=== PATIENT | female | born 1980 | race American Indian/Alaskan Native ===

== ENCOUNTER 2017-10-05 00:28 | Emergency (ER) | payer SELFPAY ==
--- NOTE | 2017-10-05 00:43 | ED PDOC ---
Arrival/HPI <Andrews Taylor - Last Filed: 10/05/17 02:45> - General Historian: Patient <Ryan Whittaker - Last Filed: 10/06/17 01:32> - General Time Seen by Provider: 10/05/17 00:40 - History of Present Illness Narrative History of Present Illness (Text): 10/05/17 00:42 37 y/o female, no significant pmh, nkda, c/o throat pain and voice hoarsenss x 3 days. Aching pain, painful to swallow, no neck pain, no coughing, no drooling , no fever or chills, no rash, no palpitation, no night sweat, no other medical or psychological complaints. (Ryan Whittaker) Past Medical History - Provider Review Nursing Documentation Reviewed: Yes <Ryan Whittaker - Last Filed: 10/06/17 01:32> Family/Social History - Physician Review Nursing Documentation Reviewed: Yes Family/Social History: Unknown Family HX <Ryan Whittaker - Last Filed: 10/06/17 01:32> Allergies/Home Meds <Andrews Taylor - Last Filed: 10/05/17 02:45> <Ryan Whittaker - Last Filed: 10/06/17 01:32> Allergies/Adverse Reactions: Allergies No Known Allergies Allergy (Verified 10/05/17 00:45) Review of Systems - Review of Systems Constitutional: absent: Fatigue, Fevers Eyes: absent: Vision Changes ENT: Voice Changes, Sore Throat. absent: Hearing Changes Respiratory: absent: SOB Cardiovascular: absent: Chest Pain Gastrointestinal: absent: Abdominal Pain, Diarrhea, Nausea, Vomiting Skin: absent: Rash, Pruritis Neurological: absent: Headache, Dizziness Psychiatric: absent: Anxiety, Depression <Ryan Whittaker - Last Filed: 10/06/17 01:32> Physical Exam Pain Distress: Moderate Mental Status: Positive for: Alert and Oriented X 3 - Systems Exam Head: Present: Atraumatic, Normocephalic Pupils: Present: PERRL Extroacular Muscles: Present: EOMI Conjunctiva: Present: Normal Mouth: Present: Moist Mucous Membranes Pharnyx: Present: Other (+voice hoarseness). No: ERYTHEMA, EXUDATE, TONSILS ENLARGED, Peritonsilar Swelling, Uvular Deviation, Strider, Soft Palate/Uvular Edema Nose (Internal): Present: Normal Inspection, No Active Bleeding. No: Rhinorrhea Neck: Present: Normal Range of Motion, Lymphadenopathy (lt. anterior cervical) Respiratory/Chest: Present: Clear to Auscultation, Good Air Exchange. No: Respiratory Distress, Accessory Muscle Use Cardiovascular: Present: Regular Rate and Rhythm, Normal S1, S2. No: Murmurs Abdomen: No: Tenderness, Distention, Peritoneal Signs Back: Present: Normal Inspection Upper Extremity: Present: Normal Inspection. No: Cyanosis, Edema Lower Extremity: Present: Normal Inspection. No: Edema Neurological: Present: GCS=15, CN II-XII Intact, Speech Normal, Motor Func Grossly Intact, Gait Normal, Memory Normal Skin: Present: Warm, Dry, Normal Color. No: Rashes Lymphatic: No: Axillary Adenopathy Psychiatric: Present: Alert, Oriented x 3, Normal Insight, Normal Concentration <Ryan Whittaker - Last Filed: 10/06/17 01:32> Vital Signs Temp Pulse Resp BP Pulse Ox 10/05/17 03:30 98.2 F 68 18 111/79 100 10/05/17 00:45 98.3 F 73 17 122/69 100 Medical Decision Making <Andrews Taylor - Last Filed: 10/05/17 02:45> <Ryan Whittaker - Last Filed: 10/06/17 01:32> ED Course and Treatment: 10/05/17 00:44 -toradol/decadron/rocephine IV - (Ryan Whittaker) - Medication Orders Current Medication Orders: Discontinued Medications Dexamethasone (Decadron Inj) 8 mg IVP STAT STA Stop: 10/05/17 00:54 Last Admin: 10/05/17 02:17 Dose: 8 mg IVP Administration Document 10/05/17 02:17 NITA (Rec: 10/05/17 02:18 NITA [id number]) Charges for Administration # of IVP Administrations 1 Ceftriaxone Sodium (Rocephin 1 Gram Ivpb) 1 gm in 100 mls @ 200 mls/hr IVPB STAT STA PRN Reason: Protocol Stop: 10/05/17 01:22 Last Admin: 10/05/17 03:20 Dose: 200 mls/hr eMAR Start Stop Document 10/05/17 03:20 NITA (Rec: 10/05/17 03:21 [id number][facility] Intravenous Solution Start Date 10/05/17 Start Time 02:25 End Date 10/05/17 End time 03:21 Total Infusion Time 56 Sodium Chloride (Sodium Chloride 0.9%) 1,000 mls @ 999 mls/hr IV .Q1H1M STA Stop: 10/05/17 01:53 Last Admin: 10/05/17 03:20 Dose: 999 mls/hr eMAR Start Stop Document 10/05/17 03:20 NITA (Rec: 10/05/17 03:20 [id number]) Intravenous Solution Start Date 10/05/17 Start Time 01:15 End Date 10/05/17 End time 03:00 Total Infusion Time 105 Ketorolac Tromethamine (Toradol) 30 mg IVP STAT STA Stop: 10/05/17 00:54 Last Admin: 10/05/17 02:18 Dose: 30 mg MAR Pain Assessment Document 10/05/17 02:18 NITA (Rec: 10/05/17 02:18 [id number]) Pain Reassessment Is this a pain reassessment? Yes Sleep Is patient sleeping during reassessment? No Presence of Pain Presence of Pain Yes Location Pain Location Body Site Throat IVP Administration Document 10/05/17 02:18 NITA (Rec: 10/05/17 02:18 [id number]) Charges for Administration # of IVP Administrations 1 - PA / [employer] / Resident Statement NICOLETTE has reviewed & agrees with the documentation as recorded. NICOLETTE has examined the patient and agrees with the treatment plan. <Andrews Taylor - Last Filed: 10/05/17 02:45> - PA / [employer] / Resident Statement NICOLETTE has reviewed & agrees with the documentation as recorded. <Ryan Whittaker - Last Filed: 10/06/17 01:32> Disposition/Present on Arrival <Andrews Taylor - Last Filed: 10/05/17 02:45> - Present on Arrival Any Indicators Present on Arrival: No History of DVT/PE: No History of Uncontrolled Diabetes: No Urinary Catheter: No History of Decub. Ulcer: No - Disposition Have Diagnosis and Disposition been Completed?: Yes Disposition Time: 00:45 Patient Plan: Discharge <Ryan Whittaker - Last Filed: 10/06/17 01:32> - Disposition Diagnosis: Cervical lymphadenopathy, Throat pain, Laryngitis Disposition: HOME/ ROUTINE Condition: IMPROVED Additional Instructions: Discharge home with augmentin, motrin, salt water gargling, stop talking and no whispering either, stay hydrated, bed rest, follow up with your own pmd and ENT within 2 days, return to the ER for any new or worsening signs or symptoms. Prescriptions: Amoxicillin/Clavulanate [Augmentin 875 MG-125 MG] 1 tab PO BID #20 tab Ibuprofen [Motrin] 600 mg PO QID PRN #30 tab PRN Reason: Other Referrals: Kt De La Torre DO [Staff Provider] - Follow up with primary Forms: WORK NOTE
[2017-10-05 00:47] VITALS: O2SAT 100
[2017-10-05] MEDS: Sodium Chloride 0.9% 1,000 ML IV STA ×2 (01:17→03:20)
[2017-10-05] MEDS: cefTRIAXone 1 gm 1 GM/100 ML BAG IVPB STA ×2 (02:24→03:20)
[2017-10-05 03:43] VITALS: BP 111/79; PULSE 68; RESP 18; TEMP 98.2
== END 2017-10-05 03:47 | disposition home or self-care (01) ==
LOC: ED 00:28
DX: J04.0 Acute laryngitis (principal); R07.0 Pain in throat; R59.0 Localized enlarged lymph nodes
CPT/HCPCS: 96361; 96365; 96375; 99284; J0696; J1100; J1885; J7040